=== PATIENT | male | born 1965 | race Caucasian/White ===

== ENCOUNTER 2022-03-05 15:48 | Inpatient (IN) ==
[2022-03-05] MEDS ORDERED: MORPHINE 2 MG/1 ML SYRINGE IV ONE (16:37)
[2022-03-05] MEDS ORDERED: SODIUM CHLORIDE 0.9% 1,000 ML IV STA (16:37)
[2022-03-05] MEDS ORDERED: ONDANSETRON 4 MG/2 ML VIAL IV ONE (16:37)
[2022-03-05 17:02] LABS: Basophils % 0.4 % (0.0-0.8); Eosinophils % 0.2 % (0.00-10.9); Hematocrit 30.5 VOL% (42.0-52.0); Immature Granulocytes % 0.4 %; Immature Granulocytes Absolute 0.03 #; Lymphocytes # 1.6 10*3/uL (1.4-4.0); Lymphocytes % 19.5 % (21.2-54.2); Mean Corpuscular HGB Conc 29.5 GM/DL (32-36); Mean Corpuscular Volume 69.3 FL (87-102); Mean Platelet Volume 8.1 FL (9.6-12.0); Monocytes # 0.6 10*3/uL (0.11-0.8); Monocytes % 7.6 % (1.7-12.7); Neutrophils % 71.9 % (38.7-73.9); Platelet Count 518 T/CUMM (130-400); Red Cell Distribution Width 16.6 % (9.3-17.3); White Blood Count 8.3 T/CUMM (4-12)
[2022-03-05 17:12] LABS: INR 1.1
[2022-03-05 17:22] LABS: Albumin 2.5 G/DL (3.4-5.0); Bilirubin,Total 0.4 MG/DL (0.20-1.00); Calcium 9.7 MG/DL (8.5-10.1); Osmolality,Calculated 268.1 MOS/KG (273-304); Potassium 4.3 MMOL/L (3.5-5.1); Total Protein 8.1 G/DL (6.4-8.2)
[2022-03-05 17:22] LABS: Bilirubin,Urine Negative (Negative); Blood, Urine Large mg/dL (Negative); Glucose,Urine (UA) Negative (Negative); Ketones,Urine Negative (Negative); Nitrite,Urine Negative (Negative); Protein,Urine 100 mg/dL (Negative); Urine Appearance Clear (Clear); Urine Color Dark Yellow (Yellow); Urine Specific Gravity >= 1.030 (1.001-1.035); Urine Urobilinogen 0.2 eU/dL (<2.0); Urine pH 5.5 (4.5-8.0)
[2022-03-05 17:24] LABS: Mucus,Urine Occasional /LPF (Occasional); RBC,Urine 110 /HPF (0-4)
[2022-03-05] MEDS ORDERED: PROMETHAZINE 25 MG/1 ML VIAL IM PRN (18:15)
[2022-03-05] MEDS ORDERED: ONDANSETRON 4 MG/2 ML VIAL IV PRN (18:15)
[2022-03-05] MEDS ORDERED: ACETAMINOPHEN 325 MG TABLET PO PRN (18:15)
[2022-03-05] MEDS ORDERED: BISACODYL 5 MG TABLET PO PRN (18:15)
[2022-03-05] MEDS ORDERED: NALOXONE 0.4 MG/ML VIAL IV PRN (18:15)
[2022-03-05] MEDS: SODIUM CHLORIDE 0.9% 1,000 ML IV SCH (18:40)
[2022-03-05] MEDS: DOCUSATE SODIUM 100 MG CAPSULE PO SCH (21:25)
[2022-03-05] MEDS: MORPHINE 2 MG/1 ML SYRINGE IV PRN (22:53)
[2022-03-06] MEDS: MORPHINE 2 MG/1 ML SYRINGE IV PRN ×2 (03:29→08:18)
[2022-03-06] MEDS: SODIUM CHLORIDE 0.9% 1,000 ML IV SCH ×2 (03:32→17:26)
[2022-03-06 06:00] LABS: Basophils % 0.3 % (0.0-0.8); Eosinophils % 0.5 % (0.00-10.9); Hematocrit 26.3 VOL% (42.0-52.0); Hemoglobin 7.7 GM/DL (14.0-18.0); Immature Granulocytes % 0.5 %; Immature Granulocytes Absolute 0.04 #; Lymphocytes # 1.7 10*3/uL (1.4-4.0); Lymphocytes % 23.5 % (21.2-54.2); Mean Corpuscular HGB Conc 29.3 GM/DL (32-36); Mean Corpuscular Volume 69.2 FL (87-102); Mean Platelet Volume 8.5 FL (9.6-12.0); Monocytes # 0.7 10*3/uL (0.11-0.8); Monocytes % 9.2 % (1.7-12.7); Platelet Count 461 T/CUMM (130-400); Red Cell Distribution Width 16.7 % (9.3-17.3); White Blood Count 7.3 T/CUMM (4-12)
[2022-03-06 06:15] LABS: Bilirubin,Total 0.4 MG/DL (0.20-1.00); Calcium 8.8 MG/DL (8.5-10.1); Osmolality,Calculated 274.7 MOS/KG (273-304); Potassium 4.4 MMOL/L (3.5-5.1); Total Protein 6.7 G/DL (6.4-8.2)
[2022-03-06] MEDS ORDERED: cefTRIAXone 1,000 MG in SODIUM CHLORIDE 0.9% 100 ML IV ONE (07:19)
[2022-03-06] MEDS ORDERED: SODIUM CHLORIDE 0.9% 1,000 ML IV PRN (08:16)
[2022-03-06] MEDS ORDERED: FAMOTIDINE 20 MG TABLET PO ONE (10:00)
[2022-03-06] MEDS ORDERED: ROCURONIUM 50 MG/5 ML VIAL IV ONE (12:07)
[2022-03-06] MEDS ORDERED: SODIUM CHLORIDE 0.9% 1,000 ML IV ONE (12:07)
[2022-03-06] MEDS ORDERED: LIDOCAINE 2% 5 ML VIAL ONE (12:07)
[2022-03-06] MEDS ORDERED: SEVOFLURANE 1 UNIT/15 MINUTE INH ONE ×8 (12:07→17:02)
[2022-03-06] MEDS ORDERED: MIDAZOLAM 2 MG/2 ML VIAL ONE (12:07)
[2022-03-06] MEDS ORDERED: propofoL 200 MG/20 ML VIAL IV ONE (12:07)
[2022-03-06] MEDS ORDERED: ONDANSETRON 4 MG/2 ML VIAL ONE (12:07)
[2022-03-06] MEDS ORDERED: fentaNYL 100 MCG/2 ML VIAL ONE (12:07)
[2022-03-06] MEDS ORDERED: HEPARIN/NACL 0.9% 2 UNITS/ML 1,000 UNIT/500 ML BAG IV ONE (12:17)
[2022-03-06] MEDS ORDERED: ROPIVACAINE 0.5% 30 ML VIAL ONE (12:30)
[2022-03-06] MEDS ORDERED: buprenorphine HCL 0.3 MG/ML VIAL ONE (12:42)
[2022-03-06] MEDS ORDERED: NEOMYCIN/POLYMYXIN IRRIG SOLN 1 ML AMP BLADDERIRR ONE (13:07)
[2022-03-06] MEDS ORDERED: cefTRIAXone 1,000 MG VIAL ONE (13:38)
[2022-03-06] MEDS ORDERED: DEXAMETHASONE 4 MG/1 ML VIAL ONE ×2 (13:44→14:43)
[2022-03-06] MEDS ORDERED: PHENYLEPHRINE 1 MG/10 ML SYRINGE IV ONE ×2 (14:43→17:02)
[2022-03-06] MEDS: DOCUSATE SODIUM 100 MG CAPSULE PO SCH ×2 (15:10→20:49)
[2022-03-06] MEDS: PANTOPRAZOLE 40 MG TABLET PO SCH (15:10)
[2022-03-06] MEDS ORDERED: LACTULOSE 20 GM/30 ML UDCUP PO PRN (16:48)
[2022-03-06] MEDS ORDERED: diphenhydrAMINE 50 MG/1 ML VIAL IV PRN (16:48)
[2022-03-06 17:23] LABS: Basophils % 0.2 % (0.0-0.8); Hematocrit 30.8 VOL% (42.0-52.0); Hemoglobin 9.2 GM/DL (14.0-18.0); Immature Granulocytes % 0.8 %; Immature Granulocytes Absolute 0.05 #; Lymphocytes # 0.6 10*3/uL (1.4-4.0); Mean Corpuscular HGB Conc 29.9 GM/DL (32-36); Mean Corpuscular Volume 72.3 FL (87-102); Mean Platelet Volume 7.7 FL (9.6-12.0); Monocytes # 0.2 10*3/uL (0.11-0.8); Monocytes % 3.1 % (1.7-12.7); Neutrophils % 86.9 % (38.7-73.9); Platelet Count 376 T/CUMM (130-400); Red Blood Count 4.26 MC/CUMM (3.8-5.5); Red Cell Distribution Width 18.6 % (9.3-17.3); White Blood Count 6.1 T/CUMM (4-12)
[2022-03-06] MEDS: cefTRIAXone 1,000 MG in SODIUM CHLORIDE 0.9% 100 ML IV SCH (17:26)
[2022-03-06] MEDS ORDERED: ONDANSETRON 4 MG/2 ML VIAL IV PRN (17:33)
[2022-03-06] MEDS: HYDROmorphone 1 MG/1 ML SYRINGE IV PRN ×4 (17:35→22:24)
[2022-03-06 17:46] LABS: Calcium 8.3 MG/DL (8.5-10.1); Osmolality,Calculated 276.7 MOS/KG (273-304); Potassium 4.5 MMOL/L (3.5-5.1)
[2022-03-06] MEDS: oxyCODONE/ACETAMINOPHEN 5-325 MG TABLET PO PRN (20:49)
[2022-03-06] MEDS: ALVIMOPAN 12 MG CAPSULE PO SCH (20:49)
[2022-03-07] MEDS: oxyCODONE/ACETAMINOPHEN 5-325 MG TABLET PO PRN ×5 (00:42→20:45)
[2022-03-07] MEDS: SODIUM CHLORIDE 0.9% 1,000 ML IV SCH ×2 (00:45→07:41)
[2022-03-07] MEDS: HYDROmorphone 1 MG/1 ML SYRINGE IV PRN ×4 (01:58→18:16)
[2022-03-07 05:59] LABS: Basophils % 0.1 % (0.0-0.8); Eosinophils % 0.1 % (0.00-10.9); Hematocrit 32.9 VOL% (42.0-52.0); Hemoglobin 9.7 GM/DL (14.0-18.0); Immature Granulocytes % 0.5 %; Immature Granulocytes Absolute 0.05 #; Lymphocytes # 1.5 10*3/uL (1.4-4.0); Lymphocytes % 13.9 % (21.2-54.2); Mean Corpuscular HGB Conc 29.5 GM/DL (32-36); Mean Corpuscular Volume 72.5 FL (87-102); Mean Platelet Volume 8.1 FL (9.6-12.0); Monocytes # 0.5 10*3/uL (0.11-0.8); Monocytes % 4.9 % (1.7-12.7); Neutrophils % 80.5 % (38.7-73.9); Platelet Count 405 T/CUMM (130-400); Red Blood Count 4.54 MC/CUMM (3.8-5.5); Red Cell Distribution Width 18.2 % (9.3-17.3); White Blood Count 10.8 T/CUMM (4-12)
[2022-03-07 06:03] LABS: Calcium 8.6 MG/DL (8.5-10.1); Osmolality,Calculated 276.5 MOS/KG (273-304); Potassium 4.3 MMOL/L (3.5-5.1)
[2022-03-07] MEDS: ALVIMOPAN 12 MG CAPSULE PO SCH ×2 (08:00→20:44)
[2022-03-07] MEDS: DOCUSATE SODIUM 100 MG CAPSULE PO SCH ×2 (08:00→20:45)
[2022-03-07] MEDS: PANTOPRAZOLE 40 MG TABLET PO SCH (08:00)
[2022-03-07] MEDS: cefTRIAXone 1,000 MG in SODIUM CHLORIDE 0.9% 100 ML IV SCH (16:05)
[2022-03-08] MEDS: oxyCODONE/ACETAMINOPHEN 5-325 MG TABLET PO PRN ×6 (01:40→23:46)
[2022-03-08 05:53] LABS: Basophils % 0.3 % (0.0-0.8); Eosinophils # 0.1 10*3/uL (0.0-0.87); Eosinophils % 0.9 % (0.00-10.9); Hematocrit 33.1 VOL% (42.0-52.0); Hemoglobin 10.1 GM/DL (14.0-18.0); Immature Granulocytes % 0.4 %; Immature Granulocytes Absolute 0.03 #; Lymphocytes # 1.5 10*3/uL (1.4-4.0); Lymphocytes % 19.8 % (21.2-54.2); Mean Corpuscular HGB Conc 30.5 GM/DL (32-36); Monocytes # 0.4 10*3/uL (0.11-0.8); Monocytes % 5.9 % (1.7-12.7); Neutrophils % 72.7 % (38.7-73.9); Platelet Count 443 T/CUMM (130-400); Red Cell Distribution Width 18.6 % (9.3-17.3); White Blood Count 7.5 T/CUMM (4-12)
[2022-03-08 06:12] LABS: Osmolality,Calculated 275.7 MOS/KG (273-304); Potassium 3.8 MMOL/L (3.5-5.1)
[2022-03-08] MEDS: PANTOPRAZOLE 40 MG TABLET PO SCH (08:24)
[2022-03-08] MEDS: HYDROmorphone 1 MG/1 ML SYRINGE IV PRN (08:24)
[2022-03-08] MEDS: ALVIMOPAN 12 MG CAPSULE PO SCH ×2 (08:24→21:02)
[2022-03-08] MEDS: DOCUSATE SODIUM 100 MG CAPSULE PO SCH ×2 (08:24→21:01)
[2022-03-08] MEDS: cefTRIAXone 1,000 MG in SODIUM CHLORIDE 0.9% 100 ML IV SCH (16:23)
[2022-03-09] MEDS: oxyCODONE/ACETAMINOPHEN 5-325 MG TABLET PO PRN ×2 (03:46→07:39)
[2022-03-09 05:25] LABS: Calcium 9.2 MG/DL (8.5-10.1); Osmolality,Calculated 279.4 MOS/KG (273-304); Potassium 3.5 MMOL/L (3.5-5.1)
[2022-03-09 05:39] LABS: Basophils % 0.3 % (0.0-0.8); Eosinophils # 0.1 10*3/uL (0.0-0.87); Eosinophils % 1.7 % (0.00-10.9); Hematocrit 36.2 VOL% (42.0-52.0); Immature Granulocytes % 0.5 %; Immature Granulocytes Absolute 0.03 #; Lymphocytes # 1.9 10*3/uL (1.4-4.0); Lymphocytes % 32.3 % (21.2-54.2); Mean Corpuscular HGB Conc 29.8 GM/DL (32-36); Mean Platelet Volume 8.2 FL (9.6-12.0); Monocytes # 0.4 10*3/uL (0.11-0.8); Monocytes % 6.3 % (1.7-12.7); Neutrophils % 58.9 % (38.7-73.9); Platelet Count 495 T/CUMM (130-400); Red Blood Count 5.03 MC/CUMM (3.8-5.5); Red Cell Distribution Width 18.7 % (9.3-17.3); White Blood Count 5.9 T/CUMM (4-12)
[2022-03-09 05:40] LABS: Hemoglobin 10.8 GM/DL (14.0-18.0)
[2022-03-09 07:16] VITALS: BP 176/91
[2022-03-09] MEDS: PANTOPRAZOLE 40 MG TABLET PO SCH (08:36)
[2022-03-09] MEDS: DOCUSATE SODIUM 100 MG CAPSULE PO SCH (08:52)
[2022-03-09] MEDS: ALVIMOPAN 12 MG CAPSULE PO SCH (08:52)
== END 2022-03-09 09:52 | disposition home or self-care (01) | DRG 657 ==
LOC: N.ED 15:48 → N.EDINP 18:15 → N.3E 18:52
PROVIDERS: ADMIT Family Medicine; ATTEND Family Medicine